=== PATIENT | male | born 1975 | race Caucasian/White ===

== ENCOUNTER 2019-09-03 04:59 | Observation (INO) | payer BC, MEDICAID ==
[2019-09-03] VITALS (12 sets, daily range): BP systolic 111–133; BP diastolic 58–89
[~2019-09-03] VITALS: Ht 180.3 cm; Wt 105.0 kg
[~2019-09-03 04:59] MED LIST: NO HOME MEDS
--- NOTE | 2019-09-03 05:18 | NUR ---
Pt does say he was tachypnic at the time, tingling in fingertips and he has been under increased stress lately.
[2019-09-03 05:26] LABS: BASOPHILS # (AUTO) 0.1 X10'3 (0-0.2); BASOPHILS % (AUTO) 0.5 % (0-1); EOSINOPHILS # (AUTO) 0.1 X10'3 (0-0.9); HEMATOCRIT 45.6 % (42.0-52.0); HEMOGLOBIN 15.2 g/dl (14.0-17.9); LYMPHOCYTES # (AUTO) 2.7 X10'3 (1.1-4.8); LYMPHOCYTES % (AUTO) 23.3 % (21-51); MEAN CORPUSCULAR HEMOGLOBIN 31.5 PG (27.0-31.0); MEAN CORPUSCULAR HGB CONC 33.2 g/dL (33.0-36.5); MEAN CORPUSCULAR VOLUME 94.8 FL (78-98); MEAN PLATELET VOLUME 8.4 FL (7.4-10.4); MONOCYTES # (AUTO) 0.9 X10'3 (0-0.9); MONOCYTES % (AUTO) 7.7 % (2-12); NEUTROPHILS # (AUTO) 7.9 X10'3 (1.8-7.7); NEUTROPHILS % (AUTO) 67.5 % (42-75); PLATELET COUNT 270 X10'3 (140-440); RED BLOOD COUNT 4.81 X10'6 (4.70-6.10); RED CELL DISTRIBUTION WIDTH 14.2 % (11.5-14.5); WHITE BLOOD COUNT 11.7 X10'3 (4.5-11.0)
[2019-09-03 05:37] LABS: ALANINE AMINOTRANSFERASE 56 U/L (12-78); ALBUMIN 3.6 G/DL (3.4-5.0); ALBUMIN/GLOBULIN RATIO 1.1 (1.1-1.5); ALKALINE PHOSPHATASE 69 IU/L (46-116); ANION GAP 12 (8-16); ASPARTATE AMINO TRANSFERASE 34 U/L (10-37); BILIRUBIN,TOTAL 0.5 MG/DL (0.1-1.0); BLOOD UREA NITROGEN 19 MG/DL (7-18); BUN/CREATININE RATIO 18.3 (5.4-32.0); CALCIUM 8.7 MG/DL (8.5-10.1); CHLORIDE 105 MMOL/L (99-107); CREATININE 1.04 MG/DL (0.60-1.10); GLUCOSE 88 MG/DL (70-104); POTASSIUM 3.3 MMOL/L (3.5-5.1); SODIUM 141 MMOL/L (135-145); TOTAL PROTEIN 6.8 G/DL (6.4-8.2); eGFR 77 ML/MIN
[2019-09-03] MEDS ORDERED: normal saline 1000ml 1,000 ML IV ONE (05:48)
[2019-09-03] MEDS ORDERED: nitroGLYCERIN 0.2mg/hour patch TD ONE (05:50)
--- NOTE | 2019-09-03 05:55 | NUR ---
MD Stone requesting B/P check on both upper extremities for comparison. Right-124/73, Left-113/78
[2019-09-03] MEDS ORDERED: iohexol 350MG/ML 100ml bottle IV ONE (06:02)
[2019-09-03] MEDS ORDERED: regadenoson 0.4mg/5ml syringe IV ONE (07:35)
[2019-09-03] MEDS ORDERED: nitroGLYCERIN 0.4mg SUBLingual tab SL PRN ×2 (07:35→07:40)
[2019-09-03] MEDS ORDERED: metoprolol tartrate 1mg/ml inj IV PRN (07:35)
[2019-09-03] MEDS ORDERED: aminophylline 250mg/10ml inj. IV PRN (07:35)
[2019-09-03] MEDS ORDERED: mag hydrox/Alum hydrox/simeth 30ml oral suspension PO PRN (07:40)
[2019-09-03] MEDS ORDERED: magnesium hydroxide 30ml (MOM) UD suspension PO PRN (07:40)
[2019-09-03] MEDS ORDERED: morphine 2 MG/ML inj. syringe IV PRN ×2 (07:40)
[2019-09-03] MEDS ORDERED: acetaminophen 325mg tablet PO PRN (07:40)
[2019-09-03] MEDS ORDERED: ondansetron/PF 4mg/2ml inj IV PRN (07:40)
[2019-09-03] MEDS ORDERED: aspirin 81mg tablet.DR PO SCH (08:00)
[2019-09-03 08:23] LABS: HEMOGLOBIN A1C 4.7 % (4.5-6.2)
[2019-09-03] MEDS ORDERED: nicotine 21mg patch - 24 hr TD SCH (09:25)
--- NOTE | 2019-09-03 17:09 | NUR ---
Discharged. Stable per Dr Warren. PIV out and tele returned. Signed DC papers and educated on chest pain. No new meds. Patient took belongings, wrist band cutoff, pt ambulated out to lobby to be picked up by ride.
== END 2019-09-03 17:10 | disposition home or self-care (01) ==
LOC: ER 04:59 → ED HOLD 07:36 → PCU 3S 09:21
PROVIDERS: ADMIT Internal Medicine; ATTEND Internal Medicine
DX: R07.89 Other chest pain (principal); F17.200 Nicotine dependence, unspecified, uncomplicated; Z90.49 Acquired absence of other specified parts of digestive tract; Z91.030 Bee allergy status
CPT/HCPCS: 36415; 71045; 71275; 74175; 78452; 80053; 83036; 83880; 84484; 85025; 87081; 93005; 93017; 99285; A9500; G0378; J2785; J7030; Q9967

== ENCOUNTER 2023-08-12 05:00 | Emergency (ER) | payer BC, OTHER ==
[~2023-08-12] VITALS: Ht 180.3 cm; Wt 93.2 kg
[2023-08-12 05:02] VITALS: BP 134/78; PULSE 74; RESP 18; TEMP 98.2; O2SAT 98
[2023-08-12] MEDS ORDERED: CYCL-1 PO (10:26)
== END 2023-08-12 10:46 | disposition home or self-care (01) ==
LOC: ER 05:01
DX: M25.562 Pain in left knee (principal); Z90.49 Acquired absence of other specified parts of digestive tract
CPT/HCPCS: 99283